=== PATIENT | female | born 1955 | race Caucasian/White ===

== ENCOUNTER 2019-11-26 12:52 | Emergency (ER) | payer MEDICARE, OTHER ==
[~2019-11-26] VITALS: Ht 160 cm; Wt 65.8 kg
[2019-11-26] MEDS ORDERED: CARVEDILOL12.5 MG PO (13:04)
[2019-11-26 14:18] LABS: URINE BILIRUBIN NEGATIVE (Negative); URINE BLOOD TRACE (Negative); URINE COLOR YELLOW; URINE GLUCOSE-RANDOM NEGATIVE (Negative); URINE KETONES NEGATIVE (Negative); URINE LEUKOCYTES-REFLEX 1+ (Negative); URINE NITRITE-REFLEX NEGATIVE (Negative); URINE PROTEIN NEGATIVE (Negative); URINE UROBILINOGEN 0.2 E.U./dl (0.2-1.0)
[2019-11-26 14:19] LABS: URINE CLARITY HAZY
[2019-11-26 14:26] LABS: AMP/METHAMP POSITIVE (Negative); BACTERIA-REFLEX 1-9 Few /HPF (None Seen); BARBITURATES Negative (Negative); BENZODIAZEPINES POSITIVE (Negative); CASTS None Seen /LPF (None Seen); COCAINE Negative (Negative); CRYSTALS None Seen /LPF (None Seen); METHADONE Negative (Negative); OPIATES Negative (Negative); PCP Negative (Negative); SQUAMOUS 0-3 Few /LPF (0-3); THC Negative (Negative); URINE RBC 0-2 Rare /HPF (0-2); URINE WBC-REFLEX >25 Many /HPF (0-5)
[2019-11-26 14:57] LABS: CALCIUM 9.7 mg/dL (8.5-10.1); CREATININE 0.6 mg/dL (0.6-1.3); POTASSIUM 4.1 mmol/L (3.5-5.1)
[2019-11-26 15:09] VITALS: BP 149/78
== END 2019-11-26 15:10 | disposition home or self-care (01) ==
LOC: M.ERS 12:52
PROVIDERS: Personal Emergency Response Attendant
DX: F11.23 Opioid dependence with withdrawal (principal); I50.9 Heart failure, unspecified; I11.0 Hypertensive heart disease with heart failure